=== PATIENT | male | born 1960 | race Caucasian/White ===

== ENCOUNTER 2018-04-28 06:24 | Day surgery (SDC) | payer BC, OTHER ==
[2018-04-28] MEDS ORDERED: Lactated Ringers 1,000 ML IV SCH (07:00)
[2018-04-28] MEDS ORDERED: fentaNYL 100 MCG/2 ML SDV ONE (07:46)
[2018-04-28] MEDS ORDERED: Propofol 200 MG/20 ML SDV ONE (07:46)
[2018-04-28] MEDS ORDERED: Midazolam 1 MG/ML 2 ML SDV ONE (07:46)
--- NOTE | 2018-04-28 13:08 | OR ---
DATE OF PROCEDURE: 04/28/2018 PREOP DIAGNOSIS: Colon cancer screening. POSTOP DIAGNOSIS: Unremarkable colonoscopy. PROCEDURE: Colonoscopy to the cecum. ANESTHESIA: IV anesthesia with monitored anesthesia care. SURGEON: Dick Barry MD INDICATION: This 57-year-old white male is referred for a colonoscopy for colon cancer screening. This is his first colonoscopic exam. I counseled him for the procedure including risks and alternatives and he gave his informed consent to proceed. PROCEDURE DETAILS: The patient was placed in the left lateral decubitus position. IV anesthesia was administered by the Anesthesia Service. Time-out was held. A rectal exam was performed, which was unremarkable. The flexible video Olympus colonoscope was introduced through his anus, up his rectum and out his colon all the way to the cecum. Once the cecum was reached, the scope was slowly withdrawn examining the mucosa throughout. No mucosal abnormalities were noted. The scope was retroflexed in the rectum with the distal rectum appearing unremarkable. The scope was straightened and removed. He tolerated the procedure well. Dick Barry MD /[id number]
== END 2018-04-28 09:20 | disposition home or self-care (01) ==
LOC: JP.SDS 06:24
PROVIDERS: ATTEND Surgery
DX: Z12.11 Encounter for screening for malignant neoplasm of colon (principal); Z88.6 Allergy status to analgesic agent; Z88.8 Allergy status to other drugs, medicaments and biological substances
CPT/HCPCS: 45378; J2250; J2704; J3010; J7120

== ENCOUNTER 2019-03-06 21:01 | Emergency (ER) | payer OTHER ==
--- NOTE | 2019-03-06 21:12 | EDM.PDOC ---
ED HPI GENERAL MEDICAL PROBLEM - General Chief Complaint: Lower Extremity Injury/Pain Stated Complaint: BROKE LEFT FOOT Time Seen by Provider: 03/06/19 21:05 Source of Information: Reports: Patient History Limitations: Reports: No Limitations - History of Present Illness INITIAL COMMENTS - FREE TEXT/NARRATIVE: Dropped a Bobcat bucket onto his L foot. Thinks he may have an open fracture. Here via private vehicle. Tetanus UTD. 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: Other (see below) (none) Left Foot Pain Score (Numeric/FACES): 7 - Related Data Allergies Allergy/AdvReac Type Severity Reaction Status Date / Time cyclobenzaprine Allergy Cannot Verified 03/06/19 21:14 [From Flexeril] Remember fenofibrate Allergy Cannot Verified 03/06/19 21:14 Remember naproxen Allergy Cannot Verified 03/06/19 21:14 Remember gabapentin AdvReac Dizziness Verified 03/06/19 21:14 metformin AdvReac Muscle Verified 03/06/19 21:14 Aches Jwacwuj-Acd-Fsl Reductase AdvReac Muscle Verified 03/06/19 21:14 Inhibitor Aches tizanidine HCl AdvReac Lethargy Verified 03/06/19 21:14 [From Zanaflex] Home Meds: Home Meds Aspirin [Adult Low Dose Aspirin EC] 81 mg PO DAILY 05/28/13 [History] Pediatric Multivitamin Comb#30 [Gummies Children Multivitamin] 2 tab PO DAILY [History] Ezetimibe 10 mg PO DAILY 04/26/18 [History] Insulin Degludec [Tresiba Flextouch U-200] 106 unit SQ DAILY 04/26/18 [History] Naproxen Sodium [Aleve] 220 mg PO BID PRN 04/26/18 [History] Semaglutide 1 mg SQ WEEKLY 04/26/18 [History] Tamsulosin HCl [Flomax] 0.4 mg PO DAILY PRN 04/26/18 [History] Past Medical History HEENT History: Reports: Impaired Vision Cardiovascular History: Reports: High Cholesterol Gastrointestinal History: Reports: GERD Genitourinary History: Reports: Renal Calculus Musculoskeletal History: Reports: Fracture, Osteoarthritis Neurological History: Reports: Head Trauma, Migraines Endocrine/Metabolic History: Reports: Diabetes, Type II, Obesity/BMI 30+ - Infectious Disease History Infectious Disease History: Reports: Chicken Pox, Measles, Mumps, Other (See Below) Other Infectious Disease History: Lymes - Past Surgical History HEENT Surgical History: Reports: None Cardiovascular Surgical History: Reports: None GI Surgical History: Reports: None Male Surgical History: Reports: None Endocrine Surgical History: Reports: None Neurological Surgical History: Reports: None Musculoskeletal Surgical History: Reports: None Social & Family History - Caffeine Use Caffeine Use: Reports: Coffee, Soda Review of Systems - Review of Systems Review Of Systems: See Below Constitutional: Reports: No Symptoms Musculoskeletal: Reports: Foot Pain (left) Skin: Reports: Wound (proximal, dorsal L great toe), Other (L great toe is cyanotic) Neurological: Reports: No Symptoms ED EXAM, GENERAL - Physical Exam Exam: See Below Exam Limited By: No Limitations General Appearance: Alert, WD/WN, No Apparent Distress Extremities: Other (dried blood on L foot. L great toe is slightly cyanotic. ) Neurological: Alert, Oriented, CN II-XII Intact, Normal Cognition Psychiatric: Normal Affect, Normal Mood Skin Exam: Warm, Dry, Normal Color, No Rash, Wound/Incision (prox/dorsal L great toe- approx 1 cm, non-gaping) Course - Vital Signs Text/Narrative:: Dr. Valdovinos called @ 2153h Accepted in transfer to [place] for ortho care by Dr. Montano, ER physician at 2200h Last Recorded V/S: Last Vital Signs Temp 36.5 C 03/06/19 21:16 Pulse 102 H 03/06/19 21:16 Resp 16 03/06/19 21:16 BP 150/92 H 03/06/19 21:16 Pulse Ox 96 03/06/19 21:16 - Orders/Labs/Meds Orders: Active Orders 24 hr Category Date Time Status Foot Comp Min 3V Lt [CR] Stat Exams 03/06/19 21:09 Taken Sodium Chloride 0.9% [Saline Flush] Med 03/06/19 21:29 Active 10 ml FLUSH ASDIRECTED PRN Saline Lock Insert [OM.PC] Routine Oth 03/06/19 21:29 Ordered Medication Orders Sodium Chloride (Saline Flush) 10 ml FLUSH ASDIRECTED PRN PRN Reason: Keep Vein Open Last Admin: 03/06/19 22:00 Dose: 10 ml Meds: Medications Generic Name Dose Route Start Last Admin Trade Name Margot PRN Reason Stop Dose Admin Sodium Chloride 10 ml 03/06/19 21:29 03/06/19 22:00 Saline Flush FLUSH 10 ml ASDIRECTED PRN Administration Keep Vein Open Discontinued Medications Generic Name Dose Route Start Last Admin Trade Name Freq PRN Reason Stop Dose Admin Cefazolin Sodium 1 gm/ Sodium 50 mls @ 100 mls/hr 03/06/19 21:29 03/06/19 21: 58 Chloride IV 03/06/19 21:58 100 mls/hr ONETIME ONE Administration - Radiology Interpretation Free Text/Narrative:: L foot [id number]-displaced fx of the distal aspect of the proximal phalanx of the L great toe, displaced fx of the prox phalanx of the 2nd toe. Departure - Departure Time of Disposition: 22:15 Disposition: DC/Tfer to Acute Hospital 02 Condition: Fair Clinical Impression: Open fracture of left foot Qualifiers: Encounter type: initial encounter Qualified Code(s): S92.902B - Unspecified fracture of left foot, initial encounter for open fracture - Discharge Information *PRESCRIPTION DRUG MONITORING PROGRAM REVIEWED*: No *COPY OF PRESCRIPTION DRUG MONITORING REPORT IN PATIENT NAOMY: No Referrals: Antonella Izquierdo MD [Primary Care Provider] - Forms: ED Department Discharge Additional Instructions: Go directly to the ER in [place]. Do not eat or drink before being seen. - My Orders Last 24 Hours: My Active Orders 03/06/19 21:09 Foot Comp Min 3V Lt [CR] Stat 03/06/19 21:29 Sodium Chloride 0.9% [Saline Flush] 10 ml FLUSH ASDIRECTED PRN Saline Lock Insert [OM.PC] Routine - Assessment/Plan Last 24 Hours: My Active Orders 03/06/19 21:09 Foot Comp Min 3V Lt [CR] Stat 03/06/19 21:29 Sodium Chloride 0.9% [Saline Flush] 10 ml FLUSH ASDIRECTED PRN Saline Lock Insert [OM.PC] Routine
[2019-03-06] MEDS ORDERED: Sodium Chloride 0.9% 10 ML Syringe FLUSH PRN (21:29)
[2019-03-06] MEDS ORDERED: ceFAZolin 1 GM in Sodium Chloride 0.9% 50 ML IV ONE (21:29)
--- NOTE | 2019-03-06 22:36 | CRLCR ---
INDICATION: Foot injury from trauma TECHNIQUE: Foot radiograph 3 views left COMPARISON: None FINDINGS: Bone: There is a displaced and mildly impacted fracture seen in the 2nd proximal phalanx. A displaced intra-articular fracture is present along the distal margin of the 1st proximal phalanx. Joint: The visualized hindfoot, midfoot, and forefoot joints are unremarkable in appearance. No significant ankle effusion is seen. Soft tissue: Unremarkable. No radiopaque foreign bodies are seen. IMPRESSIONS: 1. There is a displaced and mildly impacted fracture seen in the 2nd proximal phalanx. 2. A displaced intra-articular fracture is present along the distal margin of the 1st proximal phalanx. Dictated by Howie Sewell MD @ 03/06/2019 10:32:21 PM Dictated by: Howie Sewell MD @ 03/06/2019 22:33:34 (Electronically Signed)
== END 2019-03-06 22:55 ==
LOC: JP.ED 21:01
DX: S92.512A Displaced fracture of proximal phalanx of left lesser toe(s), initial encounter for closed fracture (principal); S92.415A Nondisplaced fracture of proximal phalanx of left great toe, initial encounter for closed fracture; E11.9 Type 2 diabetes mellitus without complications; E66.9 Obesity, unspecified; Z88.8 Allergy status to other drugs, medicaments and biological substances; Z79.82 Long term (current) use of aspirin; Z79.4 Long term (current) use of insulin; Z79.899 Other long term (current) drug therapy; W20.8XXA Other cause of strike by thrown, projected or falling object, initial encounter
CPT/HCPCS: 73630; 96365; 99284; J0690; J7050

== ENCOUNTER 2019-03-08 15:53 | Emergency (ER) | payer OTHER ==
--- NOTE | 2019-03-08 16:27 | EDM.PDOC ---
ED HPI GENERAL MEDICAL PROBLEM - General Chief Complaint: Flank Pain Stated Complaint: SENT FROM CLINIC/[facility] Time Seen by Provider: 03/08/19 16:17 Source of Information: Reports: Patient History Limitations: Reports: No Limitations - History of Present Illness INITIAL COMMENTS - FREE TEXT/NARRATIVE: 58-year-old male with a history of nephrolithiasis came into the clinic today for a preoperative history and physical for a procedure on his left toe, when he was found to have a fever, flank pain, and it was concerning that he had nephrolithiasis. Onset: Gradual (Over the last 12-24 hours) Associated Symptoms: Reports: Headaches (Patient gets chronic headaches, this ones particularly bad) Right Flank Pain Score (Numeric/FACES): 10 - Related Data Allergies Allergy/AdvReac Type Severity Reaction Status Date / Time cyclobenzaprine Allergy Cannot Verified 03/08/19 16:01 [From Flexeril] Remember fenofibrate Allergy Cannot Verified 03/08/19 16:01 Remember naproxen Allergy Cannot Verified 03/08/19 16:01 Remember gabapentin AdvReac Dizziness Verified 03/08/19 16:01 metformin AdvReac Muscle Verified 03/08/19 16:01 Aches Dmlgnba-Ywb-Ket Reductase AdvReac Muscle Verified 03/08/19 16:01 Inhibitor Aches tizanidine HCl AdvReac Lethargy Verified 03/08/19 16:01 [From Zanaflex] Home Meds: Home Meds Aspirin [Adult Low Dose Aspirin EC] 81 mg PO DAILY 05/28/13 [History] Pediatric Multivitamin Comb#30 [Gummies Children Multivitamin] 2 tab PO DAILY [History] Ezetimibe 10 mg PO DAILY 04/26/18 [History] Insulin Degludec [Tresiba Flextouch U-200] 106 unit SQ DAILY 04/26/18 [History] Naproxen Sodium [Aleve] 220 mg PO BID PRN 04/26/18 [History] Semaglutide 1 mg SQ WEEKLY 04/26/18 [History] Tamsulosin HCl [Flomax] 0.4 mg PO DAILY PRN 04/26/18 [History] Sulfamethoxazole/Trimethoprim [Bactrim Ds Tablet] 1 each PO BID 03/08/19 [ History] Past Medical History HEENT History: Reports: Impaired Vision Cardiovascular History: Reports: High Cholesterol Gastrointestinal History: Reports: GERD Genitourinary History: Reports: Renal Calculus Musculoskeletal History: Reports: Fracture, Osteoarthritis Neurological History: Reports: Head Trauma, Migraines Endocrine/Metabolic History: Reports: Diabetes, Type II, Obesity/BMI 30+ - Infectious Disease History Infectious Disease History: Reports: Chicken Pox, Measles, Mumps, Other (See Below) Other Infectious Disease History: Lymes - Past Surgical History HEENT Surgical History: Reports: None Cardiovascular Surgical History: Reports: None GI Surgical History: Reports: None Male Surgical History: Reports: None Endocrine Surgical History: Reports: None Neurological Surgical History: Reports: None Musculoskeletal Surgical History: Reports: None Social & Family History - Tobacco Use Smoking Status *Q: Never Smoker Second Hand Smoke Exposure: No - Caffeine Use Caffeine Use: Reports: Coffee, Soda - Recreational Drug Use Recreational Drug Use: No ED ROS GENERAL - Review of Systems Review Of Systems: See Below Constitutional: Reports: Fever, Chills, Malaise HEENT: Reports: Other (Mild photophobia) Respiratory: Denies: Shortness of Breath, Cough Cardiovascular: Denies: Chest Pain GI/Abdominal: Denies: Abdominal Pain, Nausea, Vomiting : Reports: Flank Pain (On the right side). Denies: Frequency, Urgency Musculoskeletal: Reports: Back Pain Skin: Reports: No Symptoms Neurological: Reports: Headache. Denies: Dizziness ED EXAM, GENERAL - Physical Exam Exam: See Below Exam Limited By: No Limitations General Appearance: Alert, No Apparent Distress, Other (Looks uncomfortable but not distressed) Eye Exam: Bilateral Eye: Normal Inspection Head: Atraumatic Neck: Supple, Non-Tender, Other (Some palpation tenderness to the paracervical muscles) Respiratory/Chest: No Respiratory Distress, Lungs Clear Cardiovascular: Regular Rate, Rhythm, Tachycardia (Mild tachycardia) GI/Abdominal: Soft, Non-Tender Extremities: Other (Very ecchymotic left foot, with a sutured laceration on the top of the large toe, very swollen) Neurological: Alert, Oriented, No Motor/Sensory Deficits Psychiatric: Normal Affect, Normal Mood Skin Exam: Warm, Dry Course - Vital Signs Last Recorded V/S: Last Vital Signs Temp 100.5 F 03/08/19 19:00 Pulse 97 03/08/19 19:00 Resp 14 03/08/19 19:00 BP 106/63 03/08/19 19:00 Pulse Ox 96 03/08/19 19:00 - Orders/Labs/Meds Meds: Medications Discontinued Medications Generic Name Dose Route Start Last Admin Trade Name Margot RODRIGUEZ Reason Stop Dose Admin Fentanyl 50 mcg 03/08/19 18:00 03/08/19 18:09 Sublimaze IVPUSH 03/08/19 18:01 50 mcg ONETIME ONE Administration Ceftriaxone Sodium 1 gm/ 50 mls @ 100 mls/hr 03/08/19 17:09 03/08/19 17:29 Sodium Chloride IV 03/08/19 17:38 100 mls/hr ONETIME ONE Administration Sodium Chloride 1,000 mls @ 1,000 mls/hr 03/08/19 17:15 03/08/19 17:25 Normal Saline IV 1,000 mls/hr ASDIRECTED LORRAINE Administration Ketorolac Tromethamine 30 mg 03/08/19 17:09 03/08/19 17:25 Toradol IVPUSH 03/08/19 17:10 30 mg ONETIME ONE Administration - Re-Assessments/Exams Free Text/Narrative Re-Assessment/Exam: 03/08/19 18:24 Reviewed all the labs from the clinic. Hopefully a urine culture will be reflexed. White count is normal, urine looks fairly clean. A CT of the head was ordered because of the persistent headache which was negative, CT the abdomen and pelvis showed numerous renal stones, a 6 mm left ureteral stone without hydronephrosis. This did not correlate with his right flank pain. 03/08/19 18:36 Patient was given IV fluids and 30 mg of IV Toradol as well as 1 g of Rocephin. It did give him some relief from the headache but was still persistent. He'll continue with the Bactrim DS, additional pain medication was offered but declined. Departure - Departure Time of Disposition: 19:02 Disposition: Home, Self-Care 01 Clinical Impression: Open fracture of left foot Fever Qualifiers: Fever type: unspecified Qualified Code(s): R50.9 - Fever, unspecified Headache Qualifiers: Headache type: unspecified Headache chronicity pattern: acute headache - Discharge Information Instructions: Fever, Adult, [id number] Referrals: PCP,None [Primary Care Provider] - Forms: ED Department Discharge Care Plan Goals: Continue with Bactrim DS as prescribed, and take a regular dose of ibuprofen over the next several days. Recheck next Tuesday as scheduled. Return sooner if worsening despite treatment.
[2019-03-08] MEDS ORDERED: cefTRIAXone 1 GM in Sodium Chloride 0.9% 50 ML IV ONE (17:09)
[2019-03-08] MEDS ORDERED: Ketorolac 30 MG/ML SDV IVPUSH ONE (17:09)
[2019-03-08] MEDS ORDERED: Sodium Chloride 0.9% 1,000 ML IV SCH (17:15)
--- NOTE | 2019-03-08 17:40 | CRLCT ---
INDICATION: Flank pain, fever and headache. TECHNIQUE: CT of the abdomen and pelvis without contrast. COMPARISON: 03/21/2018. FINDINGS: Calcified mediastinal lymph nodes and calcified right lung granuloma. Bibasilar atelectasis. Hepatic steatosis, hepatosplenomegaly, similar to prior. Calcified splenic granuloma are again noted. Gallbladder, adrenal glands and pancreas are unremarkable. No lymphadenopathy. Aorta is normal in caliber. Distal left ureteral calculus measuring 6 mm (series 2 image 131), new from prior exam. No significant hydronephrosis or hydroureter. Numerous bilateral renal calculi are again noted. No bladder calculus. Prostate is mildly enlarged. No free fluid or free air. No evidence of small bowel obstruction. Appendix is normal. Bones are unremarkable for age. IMPRESSION : 1. Distal left ureteral calculus measures 6 mm, new from prior exam. No significant associated hydronephrosis or hydroureter. Redemonstration of multiple bilateral renal calculi. 2. Hepatic steatosis and hepatic splenomegaly, similar to prior. 3. Prostate enlargement similar to prior. Please note that all CT scans at this facility use dose modulation, iterative reconstruction, and/or weight-based dosing when appropriate to reduce radiation dose to as low as reasonably achievable. Dictated by Pawan Pack MD @ Mar 08 2019 5:30PM Signed by Dr. Pawan Pack @ Mar 08 2019 5:38PM
--- NOTE | 2019-03-08 17:42 | CRLCT ---
INDICATION: Headache TECHNIQUE: CT head without contrast. COMPARISON: None available FINDINGS: There is mild cortical atrophy. The ventricles are within normal limits for the patient`s age. There is no mass effect or midline shift. There is no loss of rubin-white differentiation. There is no evidence of an acute intracranial hemorrhage. No acute calvarial fracture is seen. An irregular right occipital scalp density is nonspecific and could represent scarring. There is opacification of a single right ethmoid sinus air cell. The mastoid air cells are clear. The visualized orbits are within normal limits. IMPRESSION: No evidence of an acute intracranial hemorrhage, mass effect or loss of rubin-white differentiation. Mild right ethmoid sinus disease. Dictated by Ron Macdonald MD @ 03/08/2019 5:39:31 PM Please note that all CT scans at this facility use dose modulation, iterative reconstruction, and/or weight-based dosing when appropriate to reduce radiation dose to as low as reasonably achievable. Dictated by: Ron Macdonald MD @ 03/08/2019 17:39:50 (Electronically Signed)
[2019-03-08] MEDS ORDERED: fentaNYL 100 MCG/2 ML SDV IVPUSH ONE (18:00)
== END 2019-03-08 19:02 | disposition home or self-care (01) ==
LOC: JP.ED 15:53
DX: S92.902B Unspecified fracture of left foot, initial encounter for open fracture (principal); S91.112A Laceration without foreign body of left great toe without damage to nail, initial encounter; R50.9 Fever, unspecified; R51 Headache; E11.9 Type 2 diabetes mellitus without complications; M19.90 Unspecified osteoarthritis, unspecified site; E78.00 Pure hypercholesterolemia, unspecified; E66.9 Obesity, unspecified; Z88.8 Allergy status to other drugs, medicaments and biological substances; Z88.5 Allergy status to narcotic agent; Z88.6 Allergy status to analgesic agent; Z88.2 Allergy status to sulfonamides; Z79.82 Long term (current) use of aspirin; Z79.4 Long term (current) use of insulin; X58.XXXA Exposure to other specified factors, initial encounter
CPT/HCPCS: 70450; 74176; 96365; 96375; 99284; J0696; J1885; J3010; J7030; J7050

== ENCOUNTER 2020-08-29 04:05 | Emergency (ER) | payer MEDICAID, OTHER ==
[2020-08-29] MEDS ORDERED: Sodium Chloride 0.9% 10 ML Syringe FLUSH PRN (04:13)
[2020-08-29] MEDS ORDERED: Ketorolac 30 MG/ML SDV IVPUSH ONE (04:13)
--- NOTE | 2020-08-29 04:29 | EDM.PDOC ---
ED HPI GENERAL MEDICAL PROBLEM - General Chief Complaint: Neurological Problem Stated Complaint: RIGHT SIDE HEAD/NECK PAIN Time Seen by Provider: 08/29/20 04:09 Source of Information: Reports: Patient, Family () History Limitations: Reports: No Limitations - History of Present Illness INITIAL COMMENTS - FREE TEXT/NARRATIVE: Galileo is a 60-year-old male presenting to the ED for evaluation of worsening right-sided neck pain radiating up to the right occipital parietal region of the scalp. The patient reports having intermittent episodes of severe, stabbing pain like somebody is driving an ice pack or a knife into his head. Patient states that the symptoms started a week ago after undergoing physical therapy for exactly the same thing. The patient states that he had significant improvement after physical therapy where they "worked out a knot in his neck and upper back", but has had some recurrence of the symptoms which have now become much more severe. Patient reports that he has been unable to sleep tonight and that he has had 30-45 of these episodes over the last 24 hours were he has the sharp, stabbing pain. He has had several episodes where his legs have given out due to the pain but is caught himself from falling. He has been taking oral Toradol 10 mg every 6 hours in an attempt to control the pain. It is unclear what he is on for muscle spasm as he has an allergy to cyclobenzaprine and intolerance to tizanidine. He denies any loss of bowel or bladder control, new onset of numbness or tingling, any localizing weakness, or new vision changes. 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 The patient is right-handed. Left Head Pain Score (Numeric/FACES): 5 - Related Data Allergies Allergy/AdvReac Type Severity Reaction Status Date / Time cyclobenzaprine Allergy Cannot Verified 08/29/20 04:09 [From Flexeril] Remember fenofibrate Allergy Cannot Verified 08/29/20 04:09 Remember naproxen Allergy Cannot Verified 08/29/20 04:09 Remember gabapentin AdvReac Dizziness Verified 08/29/20 04:09 metformin AdvReac Muscle Verified 08/29/20 04:09 Aches Grycqgw-Vnw-Vqd Reductase AdvReac Muscle Verified 08/29/20 04:09 Inhibitor Aches tizanidine HCl AdvReac Lethargy Verified 08/29/20 04:09 [From Patrick] Home Meds: Home Meds Aspirin [Adult Low Dose Aspirin EC] 81 mg PO DAILY 05/28/13 [History] Pediatric Multivitamin Comb#30 [Gummies Children Multivitamin] 2 tab PO DAILY 05/28/13 [History] Ezetimibe 10 mg PO DAILY 04/26/18 [History] Insulin Degludec [Tresiba Flextouch U-200] 106 unit SQ DAILY 04/26/18 [History] Naproxen Sodium [Aleve] 220 mg PO BID PRN 04/26/18 [History] Tamsulosin HCl [Flomax] 0.4 mg PO DAILY PRN 04/26/18 [History] Dulaglutide [Trulicity] 1.5 mg SQ WEEKLY 08/29/20 [History] Ketorolac [Toradol] 10 mg PO Q6H PRN 08/29/20 [History] Omeprazole 40 mg PO DAILY 08/29/20 [History] lisinopriL [Prinivil] 20 mg PO DAILY 08/29/20 [History] methocarbamoL [Methocarbamol] 750 mg PO QID 10 Days #40 tablet 08/29/20 [Rx] Past Medical History HEENT History: Reports: Impaired Vision Cardiovascular History: Reports: High Cholesterol Gastrointestinal History: Reports: GERD Genitourinary History: Reports: Renal Calculus Musculoskeletal History: Reports: Fracture, Osteoarthritis Neurological History: Reports: Head Trauma, Migraines Endocrine/Metabolic History: Reports: Diabetes, Type II, Obesity/BMI 30+ - Infectious Disease History Infectious Disease History: Reports: Chicken Pox, Measles, Mumps, Other (See Below) Other Infectious Disease History: Lymes - Past Surgical History HEENT Surgical History: Reports: None Cardiovascular Surgical History: Reports: None GI Surgical History: Reports: None Male Surgical History: Reports: None Endocrine Surgical History: Reports: None Neurological Surgical History: Reports: None Musculoskeletal Surgical History: Reports: None Social & Family History - Caffeine Use Caffeine Use: Reports: Coffee, Soda ED ROS GENERAL - Review of Systems Review Of Systems: See Below Constitutional: Reports: No Symptoms HEENT: Reports: Vision Change (Chronic blindness in the right eye) Respiratory: Reports: No Symptoms Cardiovascular: Reports: No Symptoms Endocrine: Reports: No Symptoms GI/Abdominal: Reports: No Symptoms : Reports: No Symptoms Musculoskeletal: Reports: Neck Pain (Episodic severe right-sided neck pain radiating to the head.) Skin: Reports: No Symptoms Neurological: Reports: Dizziness, Headache (Right-sided occipital parietal headache with intermittent episodes of sharp, stabbing pain. Subsequently the pain causes the patient to become "weak in the knees" and he has had several episodes where his legs have given out but he is caught himself from falling.) Psychiatric: Reports: No Symptoms Hematologic/Lymphatic: Reports: No Symptoms Immunologic: Reports: No Symptoms ED EXAM, NEURO - Physical Exam Exam: See Below Exam Limited By: No Limitations General Appearance: Alert, Anxious, Moderate Distress Eye Exam: Left Eye: PERRL (Right eye is reactive but slower than the left.), Bilateral Eye: EOMI Throat/Mouth: Normal Inspection, Normal Lips, Normal Teeth, Normal Gums, Normal Oropharynx, Normal Voice, No Airway Compromise Head Exam: Atraumatic, Normocephalic, Other (Tenderness to palpation over the right occipital knob reproducing the "lightening bolt" of pain on the right side of the head.) Neck: Supple, Full Range of Motion, Tender Lateral (Tenderness to palpation over the right posterior strap muscles and especially over the right trapezius muscle at the insertion over the occiput.). No: Carotid Bruit, Lymphadenopathy (R), Lymphadenopathy (L), Tender Midline Respiratory/Chest: No Respiratory Distress, Lungs Clear, Normal Breath Sounds Cardiovascular: Normal Peripheral Pulses, Regular Rate, Rhythm, No Murmur GI/Abdominal: Normal Bowel Sounds, Soft, Non-Tender Neurological: Alert, CN II-XII Intact, No Motor/Sensory Deficits, Oriented x 3 Back Exam: Normal Inspection, Full Range of Motion Extremities: Normal Inspection, Normal Range of Motion, Non-Tender Psychiatric: Normal Affect, Normal Mood Skin Exam: Warm, Dry, Intact, Normal Color, No Rash Course - Vital Signs Last Recorded V/S: Last Vital Signs Temp 36.9 C 08/29/20 04:44 Pulse 91 08/29/20 04:44 Resp 12 08/29/20 04:44 BP 158/91 H 08/29/20 04:44 Pulse Ox 95 08/29/20 04:44 - Orders/Labs/Meds Orders: Active Orders 24 hr Category Date Time Status Cervical Spine wo Cont [CT] Stat Exams 08/29/20 04:10 Ordered Head wo Cont [CT] Stat Exams 08/29/20 04:10 Ordered Sodium Chloride 0.9% [Saline Flush] Med 08/29/20 04:13 Ordered 10 ml FLUSH ASDIRECTED PRN Saline Lock Insert [OM.PC] Routine Oth 08/29/20 04:13 Ordered Medication Orders Sodium Chloride (Saline Flush) 10 ml FLUSH ASDIRECTED PRN PRN Reason: Keep Vein Open Last Admin: 08/29/20 04:24 Dose: 10 ml Documented by: JAZMÍN Labs: Laboratory Tests 08/29/20 08/29/20 Range/Units 04:22 04:22 WBC 5.1 (4.5-11.0) K/uL RBC 5.40 (4.30-5.90) M/uL Hgb 14.9 (12.0-15.0) g/dL Hct 45.3 (40.0-54.0) % MCV 84 (80-98) fL MCH 28 (27-31) pg MCHC 33 (32-36) % Plt Count 130 L (150-400) K/uL Neut % (Auto) 51 (36-66) % Lymph % (Auto) 30 (24-44) % [place] % (Auto) 15 H (2-6) % Eos % (Auto) 4 (2-4) % Baso % (Auto) 1 (0-1) % ESR 22 H (0-20) mm/hr Sodium 142 (140-148) mmol/L Potassium 4.4 (3.6-5.2) mmol/L Chloride 105 (100-108) mmol/L Carbon Dioxide 26 (21-32) mmol/L Anion Gap 10.7 (5.0-14.0) mmol/L BUN 18 (7-18) mg/dL Creatinine 1.1 (0.8-1.3) mg/dL Est Cr Clr Drug Dosing 75.58 mL/min Estimated GFR (MDRD) > 60 (>60) Glucose 157 H (74-106) mg/dL Calcium 8.9 (8.5-10.1) mg/dL Total Bilirubin 0.8 (0.2-1.0) mg/dL AST 45 H (15-37) U/L ALT 69 (12-78) U/L Alkaline Phosphatase 70 (46-116) U/L C-Reactive Protein 0.41 H (0.0-0.3) mg/dL Total Protein 7.3 (6.4-8.2) g/dL Albumin 3.6 (3.4-5.0) g/dL Globulin 3.7 H (2.3-3.5) g/dL Albumin/Globulin Ratio 1.0 L (1.2-2.2) Meds: Medications Generic Name Dose Route Start Last Admin Trade Name Freq PRN Reason Stop Dose Admin Sodium Chloride 10 ml 08/29/20 04:13 08/29/20 04:24 Saline Flush FLUSH 10 ml ASDIRECTED PRN Administration Keep Vein Open Discontinued Medications Generic Name Dose Route Start Last Admin Trade Name Freq PRN Reason Stop Dose Admin Diazepam 5 mg 08/29/20 04:22 08/29/20 04:26 Valium IVPUSH 08/29/20 04:23 5 mg ONETIME ONE Administration Ketorolac Tromethamine 30 mg 08/29/20 04:13 08/29/20 04:22 Toradol IVPUSH 08/29/20 04:14 30 mg ONETIME ONE Administration - Radiology Interpretation Free Text/Narrative:: I reviewed the CT of the head spine without contrast. CT of the head shows no acute abnormalities including hemorrhage, mass-effect, or midline shift. CT of the cervical spine shows a 1 cm left jugular lymph node but otherwise no acute findings. - Re-Assessments/Exams Free Text/Narrative Re-Assessment/Exam: 08/29/20 05:08 I reviewed the patient's labs showing a mild elevation in his C- reactive protein at 0.41 and an elevation in his erythrocyte sedimentation rate at 22. The patient's CBC is only remarkable for platelet count of 130,000. His comprehensive metabolic panel shows very mild elevation of his AST and a glucose at 157, but otherwise is unremarkable. 08/29/20 06:08 the patient received Toradol 30 mg IV and diazepam 5 mg IV with improvement in his muscle spasm and pain. The CT of the head and neck were unremarkable for any acute findings. This is likely ongoing myofascial spasm of the trapezius and cervical strap muscles contributing to the pain especially over the occipital knob causing occipital neuralgia. My plan is to continue treating with the Toradol that the patient has been on but adding methocarbamol 750 mg 4 times a day to help reduce the spasm. The patient may also benefit from another round of physical therapy to try to again loosen the cervical muscles up. Encouraged him to follow-up with his primary care provider to arrange for this. At this time I believe the patient is suitable for discharge home in satisfactory condition. Indications return to the ED were discussed. Departure - Departure Time of Disposition: 06:10 Disposition: Home, Self-Care 01 Condition: Good Clinical Impression: Tension headache Cervical myofascial strain Qualifiers: Encounter type: initial encounter Qualified Code(s): S16.1XXA - Strain of muscle, fascia and tendon at neck level, initial encounter - Discharge Information *PRESCRIPTION DRUG MONITORING PROGRAM REVIEWED*: Not Applicable *COPY OF PRESCRIPTION DRUG MONITORING REPORT IN PATIENT NAOMY: Not Applicable Instructions: Cervical Strain and Sprain Rehab-SportsMed Forms: ED Department Discharge Care Plan Goals: Based on your history, complaint, and my examination, this appears to be an acute exacerbation of spasm in the right trapezius muscle and cervical spine muscles causing occipital neuralgia which is pain arising from the nerve coming out of your skull near the bump where you are very tender. The plan is to put you on a more potent nonsedating muscle relaxant called methocarbamol which she will take 4 times a day. You should continue taking the Toradol every 6 hours as well. You may ice the area of your neck and back of the head to help reduce spasm. You may benefit from another round of physical therapy like before. I encourage you to follow-up with your primary care provider to arrange this. Sepsis Event Note (ED) - Focused Exam Vital Signs: Vital Signs Temp Pulse Resp BP Pulse Ox 08/29/20 04:44 36.9 C 91 12 158/91 H 95 08/29/20 04:42 91 12 158/91 H 95 08/29/20 04:11 36.9 C 94 11 L 180/100 H 96 - Problem List & Annotations (1) Cervical myofascial strain SNOMED Code(s): 232035426 Code(s): S16.1XXA - STRAIN OF MUSCLE, FASCIA AND TENDON AT NECK LEVEL, INIT Status: Acute Priority: High Current Visit: Yes Qualifiers: Encounter type: initial encounter Qualified Code(s): S16.1XXA - Strain of muscle, fascia and tendon at neck level, initial encounter (2) Tension headache SNOMED Code(s): 233077716 Code(s): G44.209 - TENSION-TYPE HEADACHE, UNSPECIFIED, NOT INTRACTABLE Status: Acute Priority: High Current Visit: Yes - Problem List Review Problem List Initiated/Reviewed/Updated: Yes - My Orders Last 24 Hours: My Active Orders 08/29/20 04:10 Cervical Spine wo Cont [CT] Stat Head wo Cont [CT] Stat 08/29/20 04:13 Sodium Chloride 0.9% [Saline Flush] 10 ml FLUSH ASDIRECTED PRN Saline Lock Insert [OM.PC] Routine - Assessment/Plan Last 24 Hours: My Active Orders 08/29/20 04:10 Cervical Spine wo Cont [CT] Stat Head wo Cont [CT] Stat 08/29/20 04:13 Sodium Chloride 0.9% [Saline Flush] 10 ml FLUSH ASDIRECTED PRN Saline Lock Insert [OM.PC] Routine
--- NOTE | 2020-08-29 05:41 | CRLCT ---
INDICATION: Acute right neck pain, headache TECHNIQUE: CT Head without i.v. contrast. COMPARISON: 03/08/2019 FINDINGS: CSF space: The ventricles are normal for age. Brain: No evidence of mass, acute infarction or hemorrhage is seen. No mass-effect or midline shift is seen. The brain parenchyma is otherwise normal in appearance with preservation of the rubin-white matter junction. Calvarium: The visualized paranasal sinuses are well aerated. The mastoid air cells are clear. The visualized orbits are grossly unremarkable. The calvarium is unremarkable in appearance with no fractures identified. IMPRESSION: 1. No evidence of acute infarction, intracranial hemorrhage, or mass-effect seen. Please note that all CT scans at this facility use dose modulation, iterative reconstruction, and/or weight-based dosing when appropriate to reduce radiation dose to as low as reasonably achievable. Dictated by: Howie Sewell MD @ 08/29/2020 05:40:55 (Electronically Signed)
--- NOTE | 2020-08-29 06:00 | CRLCT ---
INDICATION: Acute right neck pain, headache TECHNIQUE: CT cervical spine without i.v. contrast. Coronal and sagittal reformats were obtained. COMPARISON: None FINDINGS: Alignment: Unremarkable. Bone: No acute fractures or aggressive bone lesions are identified. Disc: The disc spaces are unremarkable in appearance. The facet joints are unremarkable. Soft tissue: The prevertebral soft tissues are unremarkable in appearance. The visualized lung apices and mediastinum are unremarkable. Mild left jugular adenopathy is noted with a 1 cm node seen. IMPRESSION: 1. No acute osseous injuries are identified. 2. Mild left jugular adenopathy is noted with a 1 cm node seen. Please note that all CT scans at this facility use dose modulation, iterative reconstruction, and/or weight-based dosing when appropriate to reduce radiation dose to as low as reasonably achievable. Dictated by: Howie Sewell MD @ 08/29/2020 05:59:13 (Electronically Signed)
[2020-08-29] MEDS ORDERED: Methocarbamol 500 MG Tab PO ONE (06:38)
== END 2020-08-29 06:48 | disposition home or self-care (01) ==
LOC: JP.ED 04:05
DX: S16.1XXA Strain of muscle, fascia and tendon at neck level, initial encounter (principal); G44.209 Tension-type headache, unspecified, not intractable; K21.9 Gastro-esophageal reflux disease without esophagitis; M19.90 Unspecified osteoarthritis, unspecified site; E11.9 Type 2 diabetes mellitus without complications; E66.9 Obesity, unspecified; Z68.35 Body mass index [BMI] 35.0-35.9, adult; Z88.8 Allergy status to other drugs, medicaments and biological substances; Z88.6 Allergy status to analgesic agent; Z79.82 Long term (current) use of aspirin; Z79.899 Other long term (current) drug therapy; Z79.4 Long term (current) use of insulin; X58.XXXA Exposure to other specified factors, initial encounter
CPT/HCPCS: 36415; 70450; 72125; 80053; 85025; 85651; 86140; 96374; 96375; 99284; A9270; J1885; J3360

== ENCOUNTER 2020-11-09 10:53 | Emergency (ER) | payer MEDICAID ==
[2020-11-09] MEDS ORDERED: Ketorolac 60 MG/2 ML SDV IM ONE (11:57)
[2020-11-09] MEDS ORDERED: Codeine/guaiFENesin 100mg-10 MG/5 ML Syrup 10 ML Cup PO ONE (11:57)
--- NOTE | 2020-11-09 11:59 | EDM.PDOC ---
ED HPI GENERAL MEDICAL PROBLEM - General Chief Complaint: Respiratory Problem Stated Complaint: POSSIBLE COVID Time Seen by Provider: 11/09/20 11:43 Source of Information: Reports: Patient, RN Notes Reviewed History Limitations: Reports: No Limitations - History of Present Illness INITIAL COMMENTS - FREE TEXT/NARRATIVE: 60-year-old gentleman presents emergency department day complaint of cough and headache, he has known exposure to Covid has had similar symptoms to his who is positive for Covid now for 2 weeks he has a known diabetic. He states his biggest problem is his ongoing cough which can be quite severe at times and a lingering headache. - Related Data Allergies Allergy/AdvReac Type Severity Reaction Status Date / Time cyclobenzaprine Allergy Cannot Verified 11/09/20 11:11 [From Flexeril] Remember fenofibrate Allergy Cannot Verified 11/09/20 11:11 Remember naproxen Allergy Cannot Verified 11/09/20 11:11 Remember gabapentin AdvReac Dizziness Verified 11/09/20 11:11 metformin AdvReac Muscle Verified 11/09/20 11:11 Aches Nzyhzbt-Cfa-Aio Reductase AdvReac Muscle Verified 11/09/20 11:11 Inhibitor Aches tizanidine HCl AdvReac Lethargy Verified 11/09/20 11:11 [From Zanaflex] Home Meds: Home Meds Insulin Degludec [Tresiba Flextouch U-200] 112 unit SQ DAILY 04/26/18 [History] Tamsulosin HCl [Flomax] 0.4 mg PO DAILY PRN 04/26/18 [History] Dulaglutide [Trulicity] 1.5 mg SQ WEEKLY 08/29/20 [History] lisinopriL [Prinivil] 20 mg PO DAILY 08/29/20 [History] Insulin Degludec [Tresiba Flextouch U-200] 112 unit SQ DAILY 11/09/20 [History] Past Medical History HEENT History: Reports: Impaired Vision, Other (See Below) Other HEENT History: blindness to left eye Cardiovascular History: Reports: High Cholesterol Respiratory History: Reports: Sleep Apnea Gastrointestinal History: Reports: GERD Genitourinary History: Reports: Renal Calculus Musculoskeletal History: Reports: Fracture, Osteoarthritis Neurological History: Reports: Head Trauma, Migraines Psychiatric History: Reports: Panic Attack Endocrine/Metabolic History: Reports: Diabetes, Type II, Obesity/BMI 30+ - Infectious Disease History Infectious Disease History: Reports: Chicken Pox, Measles, Mumps, Other (See Below) Other Infectious Disease History: Lymes - Past Surgical History Head Surgeries/Procedures: Reports: None HEENT Surgical History: Reports: None Cardiovascular Surgical History: Reports: None GI Surgical History: Reports: None Male Surgical History: Reports: None Endocrine Surgical History: Reports: None Neurological Surgical History: Reports: None Musculoskeletal Surgical History: Reports: Other (See Below) Other Musculoskeletal Surgeries/Procedures:: 2 toes left foot Dermatological Surgical History: Reports: None Social & Family History - Tobacco Use Tobacco Use Status *Q: Never Tobacco User - Caffeine Use Caffeine Use: Reports: Coffee, Soda ED ROS GENERAL - Review of Systems Review Of Systems: See Below Constitutional: Denies: Fever HEENT: Reports: No Symptoms Respiratory: Reports: Cough. Denies: Shortness of Breath Cardiovascular: Reports: No Symptoms GI/Abdominal: Reports: Diarrhea (Zoloft), Vomiting (Now resolved) ED EXAM, GENERAL - Physical Exam Exam: See Below Exam Limited By: No Limitations General Appearance: Alert, WD/WN, No Apparent Distress Respiratory/Chest: No Respiratory Distress, Lungs Clear, Normal Breath Sounds, No Accessory Muscle Use, Chest Non-Tender Cardiovascular: Regular Rate, Rhythm, No Murmur Course - Vital Signs Last Recorded V/S: Last Vital Signs Temp 98.2 F 11/09/20 11:23 Pulse 96 11/09/20 11:23 Resp 16 11/09/20 11:23 BP 132/80 11/09/20 11:23 Pulse Ox 97 11/09/20 11:23 - Orders/Labs/Meds Meds: Medications Discontinued Medications Generic Name Dose Route Start Last Admin Trade Name Margot PRN Reason Stop Dose Admin Guaifenesin/Codeine Phosphate 10 ml 11/09/20 11:57 11/09/20 12:07 Codeine/Guaifenesin 100mg-10 Mg/5 Ml Syrup 10 Ml Cup PO 11/09/20 11:58 10 ml ONETIME ONE Administration Ketorolac Tromethamine 60 mg 11/09/20 11:57 11/09/20 12:07 Ketorolac 60 Mg/2 Ml Sdv IM 11/09/20 11:58 60 mg ONETIME ONE Administration Departure - Departure Time of Disposition: 12:31 Disposition: Home, Self-Care 01 Condition: Fair Clinical Impression: Viral syndrome - Discharge Information Referrals: PCP,None [Primary Care Provider] - Forms: ED Department Discharge Additional Instructions: Continue to use Tylenol or Motrin as needed for pain control, try the Robitussin-AC as needed for cough, please followup with your primary care provider in 3-5 days if not better, please call return to the emergency department with worsening of symptoms. Sepsis Event Note (ED) - Evaluation Sepsis Screening Result: No Definite Risk - Focused Exam Vital Signs: Vital Signs Temp Pulse Resp BP Pulse Ox 11/09/20 11:23 98.2 F 96 16 132/80 97 11/09/20 11:10 98.2 F 96 16 132/80 97 - Assessment/Plan Plan: Assessment Acuity = acute Site and laterality = viral syndrome Etiology = probable Covid Manifestations = cough Location of injury = Home Lab values = none Plan He had some relief with Toradol injection provided the Robitussin-AC did help suppress the cough discharged home with 10 mg p.o. every 4 hours as needed 120 mL bottle follow-up primary care 5 to 7 days if no improvement This note was dictated using [employer] voice recognition software please call with any questions on syntax or grammar.
== END 2020-11-09 12:39 | disposition home or self-care (01) ==
LOC: JP.ED 10:53
DX: B34.9 Viral infection, unspecified (principal); N20.0 Calculus of kidney; E11.9 Type 2 diabetes mellitus without complications; E66.9 Obesity, unspecified; Z79.4 Long term (current) use of insulin; Z79.899 Other long term (current) drug therapy; Z68.33 Body mass index [BMI] 33.0-33.9, adult; Z88.8 Allergy status to other drugs, medicaments and biological substances; Z88.6 Allergy status to analgesic agent
CPT/HCPCS: 96372; 99283; A9270; J1885

== ENCOUNTER 2021-09-07 16:03 | Day surgery (SDC) | payer MEDICAID ==
[2021-09-07] MEDS ORDERED: fentaNYL 100 MCG/2 ML SDV IVPUSH ONE ×2 (16:13→17:04)
[2021-09-07] MEDS: Sodium Chloride 0.9% 1,000 ML IV SCH (17:00)
[2021-09-07] MEDS ORDERED: fentaNYL 100 MCG/2 ML SDV ONE ×2 (17:04→19:15)
[2021-09-07] MEDS ORDERED: Ondansetron 4 MG/2 ML SDV IVPUSH ONE (17:33)
[2021-09-07 17:59] LABS: CORONAVIRUS COVID-19 NAA NEGATIVE (NEGATIVE)
[2021-09-07] MEDS ORDERED: Bupivacaine 0.5% 30 ML SDV ONE (18:18)
[2021-09-07] MEDS ORDERED: Neostigmine Methylsulfate 1 MG/ML 5 ML Syringe ONE (18:24)
[2021-09-07] MEDS ORDERED: Rocuronium 50 MG/5 ML Vial ONE (18:24)
[2021-09-07] MEDS ORDERED: Propofol 200 MG/20 ML SDV ONE (18:24)
[2021-09-07] MEDS ORDERED: Glycopyrrolate 0.2 MG/ML 5 ML MDV ONE (18:24)
[2021-09-07] MEDS ORDERED: Ondansetron 4 MG/2 ML SDV ONE (18:24)
[2021-09-07] MEDS ORDERED: Dexamethasone 4 MG/ML SDV ONE (18:24)
[2021-09-07] MEDS ORDERED: Succinylcholine 200 MG/10 ML MDV ONE (18:24)
[2021-09-07] MEDS ORDERED: fentaNYL 250 MCG/5 ML SDV ONE (18:26)
[2021-09-07] MEDS ORDERED: ceFAZolin 1 GM Vial ONE (18:27)
[2021-09-07] MEDS ORDERED: Sodium Chloride 0.9% 10 ML ONE (18:27)
[2021-09-07] MEDS ORDERED: Ondansetron 4 MG/2 ML SDV IVPUSH PRN (19:37)
[2021-09-07] MEDS ORDERED: HYDROmorphone 0.5 MG/0.5 ML Syringe IVPUSH PRN (19:37)
[2021-09-07] MEDS ORDERED: oxyCODONE 5 MG Tab PO PRN (19:37)
[2021-09-07] MEDS ORDERED: traMADol 50 MG Tab PO PRN (19:37)
[2021-09-07] MEDS ORDERED: Tamsulosin 0.4 MG Cap.ER PO PRN (19:43)
[2021-09-07] MEDS ORDERED: Sodium Chloride 0.9% 1,000 ML IV SCH (19:45)
[2021-09-07] MEDS ORDERED: 50% Dextrose in Water 50 ML Syringe IVPUSH PRN (19:59)
[2021-09-07] MEDS ORDERED: Glucagon,Human Recombinant 1 MG Vial IM PRN (19:59)
[2021-09-07] MEDS ORDERED: Morphine 2 MG/ML SYRINGE IVPUSH ONE (20:04)
[2021-09-07] MEDS: Insulin Lispro 100 Unit/ML 3 ML KwikPen SUBCUT SCH (21:08)
[2021-09-07] MEDS: Ketorolac 30 MG/ML SDV IVPUSH SCH (21:10)
[2021-09-07] MEDS: Acetaminophen 500 MG Tab PO SCH (21:10)
[2021-09-07] MEDS: Docusate Sodium 100 MG Cap PO SCH (21:10)
[2021-09-07] MEDS: Nozin Nasal Sanitizer NASBOTH SCH (21:11)
[2021-09-07] MEDS ORDERED: Benzocaine/Cetylpyridinium/Menthol Lozenge MUCMEM PRN (23:33)
[2021-09-08] MEDS: Sodium Chloride 0.9% 1,000 ML IV SCH (00:02)
[2021-09-08] MEDS: Acetaminophen 500 MG Tab PO SCH ×3 (01:28→13:14)
[2021-09-08] MEDS: Ketorolac 30 MG/ML SDV IVPUSH SCH (03:35)
[2021-09-08] MEDS ORDERED: ceFAZolin 1 GM in Sodium Chloride 0.9% 50 ML IV SCH (06:00)
[2021-09-08] MEDS: Insulin Lispro 100 Unit/ML 3 ML KwikPen SUBCUT SCH ×2 (08:29→12:28)
[2021-09-08] MEDS: Docusate Sodium 100 MG Cap PO SCH (08:31)
[2021-09-08] MEDS ORDERED: Insulin Glargine,Human Rec. Analog 100 Units/ML 3 ML Pen SUBCUT SCH (09:00)
[2021-09-08] MEDS ORDERED: Lisinopril 20 MG Tab PO SCH (09:00)
[2021-09-08] MEDS: Nozin Nasal Sanitizer NASBOTH SCH (13:13)
[2021-09-08] MEDS ORDERED: ceFAZolin 1 GM in Premix Bag 1 BAG IV SCH (18:00)
== END 2021-09-08 13:45 | disposition home or self-care (01) ==
LOC: JP.ED 16:03 → JP.SDS 17:10 → JP.MS 20:30 → JP.SDS 09-08 13:45
PROVIDERS: ATTEND Specialist
DX: S82.832A Other fracture of upper and lower end of left fibula, initial encounter for closed fracture (principal); E11.9 Type 2 diabetes mellitus without complications; I10 Essential (primary) hypertension; G47.33 Obstructive sleep apnea (adult) (pediatric); K21.9 Gastro-esophageal reflux disease without esophagitis; Z01.812 Encounter for preprocedural laboratory examination; W19.XXXA Unspecified fall, initial encounter; Z79.899 Other long term (current) drug therapy; Z20.822 Contact with and (suspected) exposure to COVID-19
CPT/HCPCS: 0241U; 27695; 27792; 36415; 70450; 72125; 73600; 76000; 80048; 82947; 85025; 85027; 85610; 85730; 96374; 96375; 96376; 97110; 97116; 97162; 97530; 97535; 99285; A9270; C1713; J0330; J0690; J1100; J1815; J1885; J2270; J2405; J2704; J2710; J3010; J3490; J7030

== ENCOUNTER 2021-10-31 15:12 | Emergency (ER) | payer OTHER, MEDICAID ==
[2021-10-31] MEDS ORDERED: HYDROmorphone 1 MG/ML Syringe IVPUSH ONE (15:56)
[2021-10-31] MEDS ORDERED: Ketorolac 30 MG/ML SDV IVPUSH ONE (15:56)
[2021-10-31] MEDS ORDERED: Ondansetron 4 MG/2 ML SDV IVPUSH ONE (16:06)
== END 2021-10-31 18:00 | disposition home or self-care (01) ==
LOC: JP.ED 15:12
DX: L03.116 Cellulitis of left lower limb (principal); R50.9 Fever, unspecified; R51.9 Headache, unspecified; E78.00 Pure hypercholesterolemia, unspecified; E11.9 Type 2 diabetes mellitus without complications; E66.9 Obesity, unspecified; Z68.31 Body mass index [BMI] 31.0-31.9, adult; Z79.899 Other long term (current) drug therapy; Z79.4 Long term (current) use of insulin; Z88.8 Allergy status to other drugs, medicaments and biological substances
CPT/HCPCS: 36415; 80053; 83605; 85025; 96374; 96375; 99283-25; 99284; J1170; J1885; J2405

== ENCOUNTER 2022-01-06 08:36 | Day surgery (SDC) | payer MEDICAID ==
[~2022-01-06 08:36] MED LIST: Dexamethasone 4 MG/ML SDV ONE; Glycopyrrolate 0.2 MG/ML 5 ML MDV ONE; Lactated Ringers 1,000 ML IV SCH; Neostigmine Methylsulfate 1 MG/ML 5 ML Syringe ONE; Nozin Nasal Sanitizer NASBOTH ONE; Ondansetron 4 MG/2 ML SDV ONE; Propofol 200 MG/20 ML SDV ONE; Rocuronium 50 MG/5 ML Vial ONE; Succinylcholine 200 MG/10 ML MDV ONE; ceFAZolin 2 GM in Premix Bag 1 BAG IV ONE; fentaNYL 250 MCG/5 ML SDV ONE
[2022-01-06 09:26] LABS: ESTIMATED GFR > 60 (>60)
[2022-01-06] MEDS ORDERED: Bupivacaine 0.5% 30 ML SDV ONE (10:56)
[2022-01-06] MEDS ORDERED: Lidocaine 1% 50 ML MDV ONE (10:56)
[2022-01-06] MEDS ORDERED: traMADol 50 MG Tab PO PRN (13:57)
== END 2022-01-06 14:54 | disposition home or self-care (01) ==
LOC: JP.SDS 08:36
PROVIDERS: ATTEND Specialist
DX: T84.69XA Infection and inflammatory reaction due to internal fixation device of other site, initial encounter (principal); G47.33 Obstructive sleep apnea (adult) (pediatric); E11.9 Type 2 diabetes mellitus without complications; F41.9 Anxiety disorder, unspecified; E78.5 Hyperlipidemia, unspecified; E66.9 Obesity, unspecified; K21.9 Gastro-esophageal reflux disease without esophagitis; Z88.0 Allergy status to penicillin; Z88.2 Allergy status to sulfonamides; Z88.6 Allergy status to analgesic agent; Z88.8 Allergy status to other drugs, medicaments and biological substances; Z68.35 Body mass index [BMI] 35.0-35.9, adult; Y83.1 Surgical operation with implant of artificial internal device as the cause of abnormal reaction of the patient, or of later complication, without mention of misadventure at the time of the procedure
CPT/HCPCS: 36415; 80053; 85027; 87070; 87075; 87077; 87186; 87205; A9270-GY; J0330; J0690; J1100; J2001; J2405; J2704; J2710; J3010; J3490; J7120

== ENCOUNTER 2022-09-06 19:32 | Emergency (ER) | payer MEDICAID ==
[2022-09-06] MEDS ORDERED: Nitroglycerin 0.4 MG Tab.SL SL PRN (19:50)
[2022-09-06] MEDS ORDERED: Ondansetron 4 MG Tab.DIS PO PRN (19:50)
[2022-09-06] MEDS ORDERED: Sodium Chloride 0.9% 10 ML Syringe FLUSH PRN (19:50)
[2022-09-06] MEDS ORDERED: Morphine 4 MG/ML Syringe IVPUSH PRN (19:50)
[2022-09-06] MEDS ORDERED: Aspirin 81 MG Tab.Chew PO SCH (20:00)
[2022-09-06] MEDS ORDERED: EPINEPHrine 1 MG/ML SDV IM ONE (20:13)
[2022-09-06] MEDS ORDERED: diphenhydrAMINE 50 MG/ML SDV IVPUSH ONE (20:13)
[2022-09-06] MEDS ORDERED: methylPREDNISolone Sodium Succinate 125 MG/2 ML SDV IV ONE (20:13)
[2022-09-06 20:26] LABS: ESTIMATED GFR 63 mL/min (>60); TROPONIN I HIGH SENSITIVITY 10.8 pg/mL (<=60.3)
[2022-09-06] MEDS ORDERED: Ketorolac 30 MG/ML SDV IVPUSH ONE (20:39)
[2022-09-06 20:45] LABS: CORONAVIRUS COVID-19 NAA NEGATIVE (NEGATIVE)
[2022-09-06] MEDS ORDERED: Alum Hydrox/Mag Hydrox/Simeth 15 ML, Lidocaine 2% 15 ML PO ONE ×2 (21:17)
[2022-09-06] MEDS ORDERED: Sodium Chloride 0.9% 75 ML IV SCH (22:45)
[2022-09-06] MEDS ORDERED: Iopamidol 612 MG/ML 100 ML Bottle IV SCH (22:45)
== END 2022-09-07 00:35 | disposition home or self-care (01) ==
LOC: JP.ED 19:32
DX: R07.89 Other chest pain (principal); E78.00 Pure hypercholesterolemia, unspecified; I10 Essential (primary) hypertension; K21.9 Gastro-esophageal reflux disease without esophagitis; E11.9 Type 2 diabetes mellitus without complications; E66.9 Obesity, unspecified; Z68.30 Body mass index [BMI] 30.0-30.9, adult; Z86.16 Personal history of COVID-19; Z88.8 Allergy status to other drugs, medicaments and biological substances; Z88.5 Allergy status to narcotic agent; Z79.4 Long term (current) use of insulin; Z79.82 Long term (current) use of aspirin; Z79.899 Other long term (current) drug therapy; Z20.822 Contact with and (suspected) exposure to COVID-19
CPT/HCPCS: 0241U; 36415; 71045; 71260; 80053; 80061; 82150; 82550; 83690; 83735; 84484; 93005; 96372; 96374; 96375; 99285; A9270; J0171; J1200; J1885; J2270; J2930; J3490; Q9967; 93010; 99283

== ENCOUNTER 2022-12-28 20:18 | Emergency (ER) | payer MEDICAID ==
[2022-12-28] MEDS ORDERED: Sodium Chloride 0.9% 10 ML Syringe FLUSH PRN (21:26)
[2022-12-28] MEDS ORDERED: Ondansetron 4 MG/2 ML SDV IVPUSH ONE (21:26)
[2022-12-28] MEDS ORDERED: Ketorolac 30 MG/ML SDV IVPUSH ONE (21:26)
[2022-12-28 21:43] LABS: BASOPHILS ABSOLUTE AUTO 0.05 K/uL (0.00-0.10); BASOPHILS PERCENT AUTO 0.7 % (0.1-1.3); EOSINOPHILS ABSOLUTE AUTO 0.37 K/uL (0.00-0.40); EOSINOPHILS PERCENT AUTO 5.2 % (0.0-5.4); HEMATOCRIT 44.4 % (38.4-49.7); HEMOGLOBIN 15.2 g/dL (12.9-16.9); IMMATURE GRAN ABSOLUTE AUTO 0.04 K/uL (0.00-0.23); IMMATURE GRAN PERCENT AUTO 0.6 % (0.0-0.7); LYMPHOCYTES PERCENT AUTO 29.7 % (11.4-47.7); MEAN CORPUSCULAR HEMOGLOBIN 28.7 pg (31.6-35.5); MEAN CORPUSCULAR HGB CONC 34.2 g/dL (31.6-35.5); MEAN CORPUSCULAR VOLUME 83.8 fL (81.4-99.0); MONOCYTES ABSOLUTE AUTO 0.55 K/uL (0.20-0.90); MONOCYTES PERCENT AUTO 7.8 % (3.3-12.6); NEUTROPHILS ABSOLUTE AUTO 3.95 K/uL (1.0-7.6); PLATELET COUNT,PLT 142 K/uL (130-375); WHITE BLOOD CELL COUNT,WBC 7.1 K/uL (3.2-11.0)
[2022-12-28] MEDS ORDERED: Sodium Chloride 0.9% 1,000 ML IV SCH (23:30)
[2022-12-28 23:52] LABS: APPEARANCE,URINE CLEAR (CLEAR); BILIRUBIN,URINE NEGATIVE (NEGATIVE); COLOR,URINE YELLOW (YELLOW); GLUCOSE,URINE NEGATIVE (NEGATIVE); KETONES,URINE TRACE mg/dL (NEGATIVE); LEUKOCYTE ESTERASE,URINE TRACE (NEGATIVE); NITRITE,URINE NEGATIVE (NEGATIVE); OCCULT BLOOD,URINE MODERATE (NEGATIVE); PH,URINE 5.5 (5.0-8.0); PROTEIN,URINE NEGATIVE (NEGATIVE); UROBILINOGEN,URINE 0.2 EU/dL (0.2-1.0)
[2022-12-28 23:59] LABS: AMORPHOUS SEDIMENT,URINE NOT SEEN; BACTERIA,URINE FEW; EPITHELIAL CELLS,URINE RARE; MUCUS,URINE NOT SEEN
[2022-12-29] MEDS ORDERED: cefTRIAXone 2 GM in Sodium Chloride 0.9% 50 ML IV ONE (00:33)
[2022-12-29] MEDS ORDERED: fentaNYL 100 MCG/2 ML SDV IVPUSH ONE (01:06)
[2022-12-29 01:10] LABS: A/G RATIO 0.9 (1.2-2.2); ALANINE AMINOTRANSFERASE,ALT 65 U/L (12-78); ALBUMIN 3.3 g/dL (3.4-5.0); ALKALINE PHOSPHATASE 84 U/L (46-116); ANION GAP 10.5 mmol/L (5.0-14.0); ASPARTATE AMNIOTRANSFERASE,AST 52 U/L (15-37); BILIRUBIN TOTAL 0.6 mg/dL (0.2-1.0); BLOOD UREA NITROGEN,BUN 21 mg/dL (7-18); CALCIUM 8.6 mg/dL (8.5-10.1); CARBON DIOXIDE,CO2 27 mmol/L (21-32); CHLORIDE,CL 104 mmol/L (100-108); CREATININE 1.2 mg/dL (0.8-1.3); EST CRCL DRUG DOSING (CG) 67.59 mL/min; ESTIMATED GFR 69 mL/min (>60); GLUCOSE RANDOM 175 mg/dL (74-106); POTASSIUM,K 4.1 mmol/L (3.6-5.2); SODIUM,NA 141 mmol/L (140-148)
[2022-12-29] MEDS ORDERED: Ondansetron 4 MG/2 ML SDV IVPUSH ONE (01:31)
[2022-12-29] MEDS ORDERED: Ondansetron 4 MG/2 ML SDV ONE (01:31)
== END 2022-12-29 01:45 ==
LOC: JP.ED 20:18
DX: N39.0 Urinary tract infection, site not specified (principal); N13.9 Obstructive and reflux uropathy, unspecified; N13.2 Hydronephrosis with renal and ureteral calculous obstruction; E11.9 Type 2 diabetes mellitus without complications; I10 Essential (primary) hypertension; M19.90 Unspecified osteoarthritis, unspecified site; E66.9 Obesity, unspecified; Z68.35 Body mass index [BMI] 35.0-35.9, adult; Z88.8 Allergy status to other drugs, medicaments and biological substances; Z88.5 Allergy status to narcotic agent; Z79.899 Other long term (current) drug therapy; Z79.4 Long term (current) use of insulin; Z79.82 Long term (current) use of aspirin
CPT/HCPCS: 36415; 74176; 80053; 81001; 83735; 85025; 87086; 96361; 96365; 96375; 96376; 99285; J0696; J1885; J2405; J3010; J3490; J7030

== ENCOUNTER 2023-02-28 11:28 | Emergency (ER) | payer MEDICAID ==
[2023-02-28] MEDS ORDERED: Sodium Chloride 0.9% 10 ML Syringe FLUSH PRN (12:11)
[2023-02-28] MEDS ORDERED: Ondansetron 4 MG/2 ML SDV IVPUSH ONE (12:13)
[2023-02-28] MEDS ORDERED: Ketorolac 30 MG/ML SDV IVPUSH ONE (12:13)
[2023-02-28] MEDS ORDERED: Sodium Chloride 0.9% 1,000 ML IV SCH (12:15)
[2023-02-28 12:24] LABS: BASOPHILS ABSOLUTE AUTO 0.04 K/uL (0.00-0.10); BASOPHILS PERCENT AUTO 0.8 % (0.1-1.3); EOSINOPHILS ABSOLUTE AUTO 0.15 K/uL (0.00-0.40); HEMATOCRIT 37.9 % (38.4-49.7); HEMOGLOBIN 12.8 g/dL (12.9-16.9); IMMATURE GRAN PERCENT AUTO 0.4 % (0.0-0.7); LYMPHOCYTES PERCENT AUTO 32.3 % (11.4-47.7); MEAN CORPUSCULAR HEMOGLOBIN 27.8 pg (31.6-35.5); MEAN CORPUSCULAR HGB CONC 33.8 g/dL (31.6-35.5); MEAN CORPUSCULAR VOLUME 82.2 fL (81.4-99.0); MONOCYTES PERCENT AUTO 8.1 % (3.3-12.6); NEUTROPHILS ABSOLUTE AUTO 2.74 K/uL (1.0-7.6); NEUTROPHILS PERCENT AUTO 55.4 % (40.0-78.1); PLATELET COUNT,PLT 181 K/uL (130-375); RED BLOOD CELL COUNT 4.61 M/uL (4.14-5.76)
[2023-02-28 12:31] LABS: IMMATURE GRAN ABSOLUTE AUTO 0.02 K/uL (0.00-0.23)
[2023-02-28 12:48] LABS: A/G RATIO 0.7 (1.2-2.2); ALANINE AMINOTRANSFERASE,ALT 65 U/L (12-78); ALBUMIN 3.2 g/dL (3.4-5.0); ALKALINE PHOSPHATASE 94 U/L (46-116); ASPARTATE AMNIOTRANSFERASE,AST 65 U/L (15-37); BILIRUBIN TOTAL 0.5 mg/dL (0.2-1.0); BLOOD UREA NITROGEN,BUN 13 mg/dL (7-18); C-REACTIVE PROTEIN 1.01 mg/dL (0.0-0.3); CALCIUM 9.1 mg/dL (8.5-10.1); CARBON DIOXIDE,CO2 25 mmol/L (21-32); CHLORIDE,CL 102 mmol/L (100-108); CREATININE 1.1 mg/dL (0.8-1.3); EST CRCL DRUG DOSING (CG) 73.74 mL/min; ESTIMATED GFR 77 mL/min (>60); GLUCOSE RANDOM 212 mg/dL (74-106); POTASSIUM,K 4.3 mmol/L (3.6-5.2); PROTEIN TOTAL,TP 7.6 g/dL (6.4-8.2); SODIUM,NA 137 mmol/L (140-148); TROPONIN I HIGH SENSITIVITY 6.9 pg/mL (<=60.3)
[2023-02-28 12:49] LABS: ANION GAP 14.3 mmol/L (5.0-14.0)
[2023-02-28 14:40] LABS: APPEARANCE,URINE CLOUDY (CLEAR); BILIRUBIN,URINE NEGATIVE (NEGATIVE); COLOR,URINE YELLOW (YELLOW); GLUCOSE,URINE 100 mg/dL (NEGATIVE); KETONES,URINE NEGATIVE (NEGATIVE); LEUKOCYTE ESTERASE,URINE SMALL (NEGATIVE); NITRITE,URINE NEGATIVE (NEGATIVE); OCCULT BLOOD,URINE MODERATE (NEGATIVE); PH,URINE 5.5 (5.0-8.0); PROTEIN,URINE TRACE mg/dL (NEGATIVE); UROBILINOGEN,URINE 0.2 EU/dL (0.2-1.0)
[2023-02-28 14:48] LABS: BACTERIA,URINE MANY; EPITHELIAL CELLS,URINE NOT SEEN; RBC,URINE 20-30 (0-5); WBC,URINE PACKED (0-5)
[2023-02-28 14:49] LABS: AMORPHOUS SEDIMENT,URINE NOT SEEN; MUCUS,URINE MANY
[2023-02-28] MEDS ORDERED: cefTRIAXone 2 GM in Sodium Chloride 0.9% 50 ML IV ONE (14:55)
== END 2023-02-28 15:59 | disposition home or self-care (01) ==
LOC: JP.ED 11:28
DX: N39.0 Urinary tract infection, site not specified (principal); I10 Essential (primary) hypertension; E11.9 Type 2 diabetes mellitus without complications; E66.9 Obesity, unspecified; M19.90 Unspecified osteoarthritis, unspecified site; Z68.34 Body mass index [BMI] 34.0-34.9, adult; Z86.16 Personal history of COVID-19; Z88.5 Allergy status to narcotic agent; Z88.8 Allergy status to other drugs, medicaments and biological substances; Z88.6 Allergy status to analgesic agent; Z79.82 Long term (current) use of aspirin; Z79.899 Other long term (current) drug therapy
CPT/HCPCS: 36415; 74176; 80053; 81001; 83605; 83690; 84145; 84484; 85025; 86140; 87086; 96361; 96365; 96375; 99284; J0696; J1885; J2405; J3490; J7030

== ENCOUNTER 2023-04-02 18:02 | Emergency (ER) | payer MEDICAID ==
[2023-04-02] MEDS ORDERED: Sodium Chloride 0.9% 10 ML Syringe FLUSH PRN (20:09)
[2023-04-02] MEDS ORDERED: Lactated Ringers 1,000 ML IV ONE (20:11)
[2023-04-02] MEDS ORDERED: Meropenem 1 GM in Sodium Chloride 0.9% 100 ML IV SCH (20:15)
[2023-04-02 20:17] LABS: BASOPHILS ABSOLUTE AUTO 0.03 K/uL (0.00-0.10); BASOPHILS PERCENT AUTO 0.3 % (0.1-1.3); EOSINOPHILS ABSOLUTE AUTO 0.05 K/uL (0.00-0.40); EOSINOPHILS PERCENT AUTO 0.4 % (0.0-5.4); HEMATOCRIT 43.7 % (38.4-49.7); HEMOGLOBIN 14.6 g/dL (12.9-16.9); IMMATURE GRAN ABSOLUTE AUTO 0.05 K/uL (0.00-0.23); IMMATURE GRAN PERCENT AUTO 0.4 % (0.0-0.7); LYMPHOCYTES ABSOLUTE AUTO 0.66 K/uL (0.8-3.3); LYMPHOCYTES PERCENT AUTO 5.8 % (11.4-47.7); MEAN CORPUSCULAR HGB CONC 33.4 g/dL (31.6-35.5); MEAN CORPUSCULAR VOLUME 83.9 fL (81.4-99.0); MONOCYTES ABSOLUTE AUTO 1.08 K/uL (0.20-0.90); MONOCYTES PERCENT AUTO 9.5 % (3.3-12.6); NEUTROPHILS PERCENT AUTO 83.6 % (40.0-78.1); PLATELET COUNT,PLT 138 K/uL (130-375); RED BLOOD CELL COUNT 5.21 M/uL (4.14-5.76); WHITE BLOOD CELL COUNT,WBC 11.4 K/uL (3.2-11.0)
[2023-04-02] MEDS ORDERED: Acetaminophen 1,000 MG in Premix Bag 1 BAG IV ONE (20:19)
[2023-04-02] MEDS ORDERED: Sodium Chloride 0.9% 10 ML SDV FLUSH ONE (20:20)
[2023-04-02] MEDS ORDERED: Iopamidol 612 MG/ML 100 ML Bottle IV PRN (20:20)
[2023-04-02] MEDS ORDERED: Sodium Chloride 0.9% 100 ML IV SCH (20:30)
[2023-04-02 20:36] LABS: A/G RATIO 0.9 (1.2-2.2); ALANINE AMINOTRANSFERASE,ALT 63 U/L (12-78); ALBUMIN 3.6 g/dL (3.4-5.0); ALKALINE PHOSPHATASE 87 U/L (46-116); ASPARTATE AMNIOTRANSFERASE,AST 36 U/L (15-37); BILIRUBIN TOTAL 2.3 mg/dL (0.2-1.0); BLOOD UREA NITROGEN,BUN 15 mg/dL (7-18); CALCIUM 9.1 mg/dL (8.5-10.1); CARBON DIOXIDE,CO2 28 mmol/L (21-32); CHLORIDE,CL 97 mmol/L (100-108); CREATININE 1.5 mg/dL (0.8-1.3); EST CRCL DRUG DOSING (CG) 50.67 mL/min; ESTIMATED GFR 53 mL/min (>60); GLUCOSE RANDOM 249 mg/dL (74-106); POTASSIUM,K 5.1 mmol/L (3.6-5.2); PROTEIN TOTAL,TP 7.8 g/dL (6.4-8.2); SODIUM,NA 132 mmol/L (140-148)
[2023-04-02 20:43] LABS: ANION GAP 12.1 mmol/L (5.0-14.0)
[2023-04-02 20:44] LABS: LACTIC ACID 1.8 mmol/L (0.4-2.0)
[2023-04-02] MEDS ORDERED: Naloxone 0.4 MG/ML SDV IVPUSH PRN (22:07)
[2023-04-02] MEDS ORDERED: HYDROmorphone 1 MG/ML Syringe IVPUSH ONE (22:07)
[2023-04-02] MEDS ORDERED: Ketorolac 30 MG/ML SDV IVPUSH ONE (22:09)
[2023-04-02 22:36] LABS: APPEARANCE,URINE CLOUDY (CLEAR); BILIRUBIN,URINE NEGATIVE (NEGATIVE); COLOR,URINE YELLOW (YELLOW); GLUCOSE,URINE NEGATIVE (NEGATIVE); KETONES,URINE TRACE mg/dL (NEGATIVE); LEUKOCYTE ESTERASE,URINE SMALL (NEGATIVE); NITRITE,URINE POSITIVE (NEGATIVE); OCCULT BLOOD,URINE LARGE (NEGATIVE); PH,URINE 5.5 (5.0-8.0); PROTEIN,URINE 100 mg/dL (NEGATIVE); UROBILINOGEN,URINE 0.2 EU/dL (0.2-1.0)
[2023-04-02 22:39] LABS: AMORPHOUS SEDIMENT,URINE NOT SEEN; BACTERIA,URINE MODERATE; EPITHELIAL CELLS,URINE RARE; MUCUS,URINE NOT SEEN; RBC,URINE 20-30 (0-5); WBC,URINE SEMI-PACKED (0-5)
[2023-04-02] MEDS ORDERED: Lactated Ringers 1,000 ML IV SCH (23:15)
== END 2023-04-03 01:15 ==
LOC: JP.ED 18:02
DX: A41.9 Sepsis, unspecified organism (principal); N17.9 Acute kidney failure, unspecified; E11.65 Type 2 diabetes mellitus with hyperglycemia; N39.0 Urinary tract infection, site not specified; N20.0 Calculus of kidney; E78.00 Pure hypercholesterolemia, unspecified; I10 Essential (primary) hypertension; E66.9 Obesity, unspecified; Z68.30 Body mass index [BMI] 30.0-30.9, adult; Z86.16 Personal history of COVID-19; Z20.822 Contact with and (suspected) exposure to COVID-19; Z88.5 Allergy status to narcotic agent; Z88.8 Allergy status to other drugs, medicaments and biological substances; Z79.82 Long term (current) use of aspirin; Z79.4 Long term (current) use of insulin; Z79.899 Other long term (current) drug therapy
CPT/HCPCS: 36415; 74177; 80053; 81001; 83605; 85025; 86140; 87040; 87077; 87086; 87088; 87186; 87635; 96361; 96365; 96375; 99285; J0131; J1885; J2185; J3490; J7120; Q9967; U0002

== ENCOUNTER 2023-10-24 11:30 | Observation (INO) | payer MEDICAID ==
[2023-10-24 11:53] LABS: BASOPHILS ABSOLUTE AUTO 0.04 K/uL (0.00-0.10); BASOPHILS PERCENT AUTO 0.7 % (0.1-1.3); EOSINOPHILS ABSOLUTE AUTO 0.18 K/uL (0.00-0.40); EOSINOPHILS PERCENT AUTO 3.3 % (0.0-5.4); HEMATOCRIT 44.3 % (38.4-49.7); HEMOGLOBIN 14.9 g/dL (12.9-16.9); IMMATURE GRAN PERCENT AUTO 0.2 % (0.0-0.7); LYMPHOCYTES ABSOLUTE AUTO 1.26 K/uL (0.8-3.3); LYMPHOCYTES PERCENT AUTO 23.4 % (11.4-47.7); MEAN CORPUSCULAR HEMOGLOBIN 27.9 pg (31.6-35.5); MEAN CORPUSCULAR HGB CONC 33.6 g/dL (31.6-35.5); MONOCYTES ABSOLUTE AUTO 0.52 K/uL (0.20-0.90); MONOCYTES PERCENT AUTO 9.7 % (3.3-12.6); NEUTROPHILS ABSOLUTE AUTO 3.37 K/uL (1.0-7.6); NEUTROPHILS PERCENT AUTO 62.7 % (40.0-78.1); PLATELET COUNT,PLT 142 K/uL (130-375); RED BLOOD CELL COUNT 5.34 M/uL (4.14-5.76); WHITE BLOOD CELL COUNT,WBC 5.4 K/uL (3.2-11.0)
[2023-10-24 11:56] LABS: IMMATURE GRAN ABSOLUTE AUTO 0.01 K/uL (0.00-0.23)
[2023-10-24 12:18] LABS: HEMOGLOBIN A1C 10.4 % (4.5-6.2)
[2023-10-24 12:22] LABS: A/G RATIO 0.9 (1.2-2.2); ALANINE AMINOTRANSFERASE,ALT 72 U/L (12-78); ALBUMIN 3.9 g/dL (3.4-5.0); ALKALINE PHOSPHATASE 112 U/L (46-116); ASPARTATE AMNIOTRANSFERASE,AST 51 U/L (15-37); BILIRUBIN TOTAL 0.8 mg/dL (0.2-1.0); BLOOD UREA NITROGEN,BUN 21 mg/dL (7-18); CALCIUM 9.8 mg/dL (8.5-10.1); CARBON DIOXIDE,CO2 27 mmol/L (21-32); CHLORIDE,CL 101 mmol/L (100-108); CREATININE 1.4 mg/dL (0.8-1.3); EST CRCL DRUG DOSING (CG) 57.21 mL/min; ESTIMATED GFR 57 mL/min (>60); GLUCOSE RANDOM 293 mg/dL (74-106); POTASSIUM,K 4.5 mmol/L (3.6-5.2); PROTEIN TOTAL,TP 8.3 g/dL (6.4-8.2); SODIUM,NA 138 mmol/L (140-148); TROPONIN I HIGH SENSITIVITY 5.4 pg/mL (<=60.3)
[2023-10-24 12:23] LABS: ANION GAP 14.5 mmol/L (5.0-14.0)
[2023-10-24] MEDS: Sodium Chloride 0.9% 10 ML Syringe FLUSH ONE (14:25)
[2023-10-24] MEDS: Sodium Chloride 0.9% 100 ML IV SCH ×2 (14:25→16:32)
[2023-10-24] MEDS: Iopamidol 755 Mg/ML 100 ML Bottle IV SCH ×2 (14:25→16:32)
[2023-10-24 14:26] LABS: APPEARANCE,URINE CLOUDY (CLEAR); BILIRUBIN,URINE NEGATIVE (NEGATIVE); COLOR,URINE YELLOW (YELLOW); GLUCOSE,URINE 500 mg/dL (NEGATIVE); KETONES,URINE NEGATIVE (NEGATIVE); LEUKOCYTE ESTERASE,URINE SMALL (NEGATIVE); NITRITE,URINE NEGATIVE (NEGATIVE); OCCULT BLOOD,URINE MODERATE (NEGATIVE); PROTEIN,URINE TRACE mg/dL (NEGATIVE); UROBILINOGEN,URINE 0.2 EU/dL (0.2-1.0)
[2023-10-24 14:46] LABS: AMORPHOUS SEDIMENT,URINE NOT SEEN; BACTERIA,URINE MODERATE; EPITHELIAL CELLS,URINE FEW; MUCUS,URINE FEW; WBC,URINE 40-50 (0-5)
[2023-10-24] MEDS ORDERED: Polyethylene Glycol 3350 Powder 17 GM Packet PO PRN (18:32)
[2023-10-24] MEDS ORDERED: Glucose Gel 15 GM in 37.5 GM Tube PO PRN (18:32)
[2023-10-24] MEDS ORDERED: Ondansetron 4 MG/2 ML SDV IV PRN (18:32)
[2023-10-24] MEDS ORDERED: 50% Dextrose in Water 50 ML Syringe IV PRN (18:32)
[2023-10-24] MEDS ORDERED: Sodium Chloride 0.9% 10 ML Syringe FLUSH PRN (18:32)
[2023-10-24 18:43] LABS: CORONAVIRUS COVID-19 NAA NEGATIVE (NEGATIVE); INFLUENZA A NAA NEGATIVE (NEGATIVE); INFLUENZA B NAA NEGATIVE (NEGATIVE); RESPIRATORY SYNCYTIAL VIR NAA NEGATIVE (NEGATIVE)
[2023-10-24] MEDS: cefTRIAXone 1 GM in Sodium Chloride 0.9% 50 ML IV SCH (19:35)
[2023-10-24] MEDS: Sodium Chloride 0.9% 1,000 ML IV SCH (19:35)
[2023-10-24] MEDS: Enoxaparin 40 MG/0.4 ML Syringe SUBCUT SCH (19:35)
[2023-10-24] MEDS: Acetaminophen 325 MG Tab PO PRN (19:39)
[2023-10-24] MEDS: Insulin Lispro 100 Unit/ML 3 ML KwikPen SUBCUT SCH (20:04)
[2023-10-24] MEDS: Aspirin 81 MG Tab.Chew PO SCH (20:07)
[2023-10-24] MEDS: Lisinopril 20 MG Tab PO SCH (20:07)
[2023-10-24] MEDS ORDERED: Non-Formulary Medication 1 Each (Omeprazole [Omeprazole] 20 MG Cap.Cr) PO SCH (21:00)
[2023-10-25] MEDS ORDERED: Non-Formulary Medication 1 Each (Insulin Degludec [Tresiba Flextouch U-200] 200 UNIT/ML Pe SQ SCH (09:00)
[2023-10-25] MEDS ORDERED: Enoxaparin 40 MG/0.4 ML Syringe SUBCUT SCH (18:00)
[2023-10-25] MEDS ORDERED: Pantoprazole 40 MG Tab.CR PO SCH (21:00)
== END 2023-10-25 12:41 | disposition home or self-care (01) ==
LOC: JP.ED 11:30 → JP.ICU 17:08
PROVIDERS: ADMIT Hospitalist; ATTEND Hospitalist
DX: R07.89 Other chest pain (principal); N39.0 Urinary tract infection, site not specified; E11.65 Type 2 diabetes mellitus with hyperglycemia; E11.22 Type 2 diabetes mellitus with diabetic chronic kidney disease; I12.9 Hypertensive chronic kidney disease with stage 1 through stage 4 chronic kidney disease, or unspecified chronic kidney disease; N18.9 Chronic kidney disease, unspecified; E78.00 Pure hypercholesterolemia, unspecified; Z79.899 Other long term (current) drug therapy; Z88.5 Allergy status to narcotic agent; Z88.8 Allergy status to other drugs, medicaments and biological substances
CPT/HCPCS: 0241U; 36415; 71046; 71046-26; 71275; 71275-26; 80053; 81001; 82947; 83036; 84484; 85025; 85379; 87086; 87088; 87186; 93005; 93306; 96361; 96365; 96372; 99222; 99238; 99285; A9270-GY; G0378; J0696; J1650; J1815; J3490; J7030; Q9967; U0002

== ENCOUNTER 2024-04-18 11:46 | Emergency (ER) | payer MEDICAID ==
[2024-04-18 13:55] LABS: TROPONIN I HIGH SENSITIVITY 8.4 pg/mL (<=60.3)
[2024-04-18] MEDS: Acetaminophen 500 MG Tab PO ONE (14:45)
== END 2024-04-18 16:45 | disposition home or self-care (01) ==
LOC: JP.ED 11:46
DX: S22.32XA Fracture of one rib, left side, initial encounter for closed fracture (principal); M62.838 Other muscle spasm; I10 Essential (primary) hypertension; E78.00 Pure hypercholesterolemia, unspecified; K21.9 Gastro-esophageal reflux disease without esophagitis; M19.90 Unspecified osteoarthritis, unspecified site; E11.9 Type 2 diabetes mellitus without complications; E66.9 Obesity, unspecified; Z86.16 Personal history of COVID-19; Z79.82 Long term (current) use of aspirin; Z79.4 Long term (current) use of insulin; Z79.899 Other long term (current) drug therapy; Z88.8 Allergy status to other drugs, medicaments and biological substances; Z88.6 Allergy status to analgesic agent; Z88.5 Allergy status to narcotic agent; X58.XXXA Exposure to other specified factors, initial encounter
CPT/HCPCS: 36415; 71260; 82150; 84484; 85379; 99284; A9270

== ENCOUNTER 2024-05-15 11:07 | Emergency (ER) | payer MEDICAID ==
[2024-05-15 12:57] LABS: BASOPHILS ABSOLUTE AUTO 0.05 K/uL (0.00-0.10); BASOPHILS PERCENT AUTO 0.9 % (0.1-1.3); EOSINOPHILS ABSOLUTE AUTO 0.18 K/uL (0.00-0.40); EOSINOPHILS PERCENT AUTO 3.3 % (0.0-5.4); HEMATOCRIT 44.5 % (38.4-49.7); HEMOGLOBIN 15.2 g/dL (12.9-16.9); IMMATURE GRAN ABSOLUTE AUTO 0.02 K/uL (0.00-0.23); IMMATURE GRAN PERCENT AUTO 0.4 % (0.0-0.7); LYMPHOCYTES ABSOLUTE AUTO 1.56 K/uL (0.8-3.3); LYMPHOCYTES PERCENT AUTO 28.7 % (11.4-47.7); MEAN CORPUSCULAR HEMOGLOBIN 28.1 pg (31.6-35.5); MEAN CORPUSCULAR HGB CONC 34.2 g/dL (31.6-35.5); MEAN CORPUSCULAR VOLUME 82.4 fL (81.4-99.0); MONOCYTES ABSOLUTE AUTO 0.46 K/uL (0.20-0.90); MONOCYTES PERCENT AUTO 8.5 % (3.3-12.6); NEUTROPHILS ABSOLUTE AUTO 3.17 K/uL (1.0-7.6); NEUTROPHILS PERCENT AUTO 58.2 % (40.0-78.1); PLATELET COUNT,PLT 128 K/uL (130-375); WHITE BLOOD CELL COUNT,WBC 5.4 K/uL (3.2-11.0)
[2024-05-15 13:17] LABS: BLOOD UREA NITROGEN,BUN 14 mg/dL (7-18); CALCIUM 9.6 mg/dL (8.5-10.1); CARBON DIOXIDE,CO2 26 mmol/L (21-32); CHLORIDE,CL 101 mmol/L (100-108); CREATININE 1.1 mg/dL (0.8-1.3); ESTIMATED GFR 76 mL/min (>60); GLUCOSE RANDOM 140 mg/dL (74-106); MAGNESIUM 1.8 mg/dL (1.8-2.4); POTASSIUM,K 4.1 mmol/L (3.6-5.2); PRO B-TYPE NATRIUR PEPT,BNPPRO 52 pg/mL (5-125); SODIUM,NA 139 mmol/L (140-148)
[2024-05-15 13:24] LABS: ANION GAP 16.1 mmol/L (5.0-14.0)
== END 2024-05-15 14:14 | disposition home or self-care (01) ==
LOC: JP.ED 11:07
DX: M62.838 Other muscle spasm (principal); R60.9 Edema, unspecified; I10 Essential (primary) hypertension; K21.9 Gastro-esophageal reflux disease without esophagitis; M19.90 Unspecified osteoarthritis, unspecified site; E11.65 Type 2 diabetes mellitus with hyperglycemia; E66.9 Obesity, unspecified; Z68.45 Body mass index [BMI] 70 or greater, adult; Z79.4 Long term (current) use of insulin; Z79.82 Long term (current) use of aspirin; Z79.899 Other long term (current) drug therapy; Z88.5 Allergy status to narcotic agent; Z88.8 Allergy status to other drugs, medicaments and biological substances; Z79.84 Long term (current) use of oral hypoglycemic drugs; Z79.1 Long term (current) use of non-steroidal anti-inflammatories (NSAID); Z88.9 Allergy status to unspecified drugs, medicaments and biological substances
CPT/HCPCS: 36415; 71046; 71046-26; 80048; 83735; 83880; 85025; 99284; 99285

== ENCOUNTER 2024-06-27 16:02 | Emergency (ER) | payer MEDICAID ==
[2024-06-27] MEDS: fentaNYL 100 MCG/2 ML SDV IVPUSH ONE (17:26)
[2024-06-27] MEDS: droPERidol 5 MG/2 ML SDV IVPUSH ONE (17:29)
[2024-06-27] MEDS: Sodium Chloride 0.9% 1,000 ML IV ONE ×2 (17:29→18:58)
[2024-06-27 18:18] LABS: CORONAVIRUS COVID-19 NAA NEGATIVE (NEGATIVE); INFLUENZA A NAA NEGATIVE (NEGATIVE); INFLUENZA B NAA NEGATIVE (NEGATIVE); RESPIRATORY SYNCYTIAL VIR NAA NEGATIVE (NEGATIVE)
[2024-06-27 18:21] LABS: LYME AB IgG Negative (Negative); LYME AB IgM Equivocal (Negative)
== END 2024-06-27 19:50 | disposition home or self-care (01) ==
LOC: JP.ED 16:02
DX: A69.20 Lyme disease, unspecified (principal); I10 Essential (primary) hypertension; K21.9 Gastro-esophageal reflux disease without esophagitis; M19.90 Unspecified osteoarthritis, unspecified site; E78.00 Pure hypercholesterolemia, unspecified; E66.9 Obesity, unspecified; E11.9 Type 2 diabetes mellitus without complications; Z88.5 Allergy status to narcotic agent; Z88.8 Allergy status to other drugs, medicaments and biological substances; Z79.4 Long term (current) use of insulin; Z79.82 Long term (current) use of aspirin; Z79.899 Other long term (current) drug therapy; Z68.36 Body mass index [BMI] 36.0-36.9, adult
CPT/HCPCS: 0241U; 70450; 74176; 86617; 86618; 87468; 87469; 87484; 87798; 96361; 96374; 96375; 99284; J1790; J3010; J7030

== ENCOUNTER 2025-04-08 09:02 | Day surgery (SDC) | payer MEDICAID ==
[2025-04-08] MEDS: Lactated Ringers 1,000 ML IV SCH (10:02)
[2025-04-08] MEDS ORDERED: Propofol 200 MG/20 ML SDV ONE (10:41)
[2025-04-08] MEDS ORDERED: fentaNYL 50 MCG/ML SDV ONE (10:41)
== END 2025-04-08 12:58 | disposition home or self-care (01) ==
LOC: JP.SDS 09:02
PROVIDERS: ATTEND Surgery
DX: K22.89 Other specified disease of esophagus (principal); E11.9 Type 2 diabetes mellitus without complications; E66.9 Obesity, unspecified
CPT/HCPCS: 00731; 43239; J2704; J3010; J7120